=== PATIENT | male | born 1980 | race African-American/Black ===

== ENCOUNTER 2020-01-26 09:21 | Emergency (ER) | payer OTHER, SELFPAY ==
[2020-01-26 09:29] VITALS: BP 118/76; PULSE 72; RESP 19; TEMP 36.5; O2SAT 99
--- NOTE | 2020-01-26 09:34 | ED.URI ---
HPI - URI/Sore Throat General Chief Complaint: Upper Respiratory Infection Stated Complaint: sore throat Time Seen by Provider: 01/26/20 09:34 Source: patient and RN notes reviewed History of Present Illness HPI Narrative: Patient is a 39-year-old male that presents the urgent care with complaints of a sore throat that started last night. Patient had been taking sinus cold medicine as well as Tylenol. Denies any known fever, nausea, vomiting. States that they are boarding a plane at 2 PM and wants to make sure they do not have strep. No other acute complaints. No acute distress noted. Patient read the plan of care. Related Data Allergies Allergy/AdvReac Type Severity Reaction Status Date / Time No Known Allergies Allergy Unverified 04/06/17 20:01 Review of Systems Review of Systems: Narrative: CONSTITUTIONAL: Denies fever, chills, or sweats. EYES: Denies visual changes, redness, or discharge. ENT: Reports of sore throat CARDIOVASCULAR: Denies chest pain, palpitations, or edema. RESPIRATORY: Denies cough or dyspnea. GASTROINTESTINAL: Denies abdominal pain, nausea, vomiting, or diarrhea. GENITOURINARY: Denies dysuria or hematuria. SKIN: Denies rash or itching. MUSCULOSKELETAL: Denies back pain, joint pain, or myalgia. NEUROLOGIC: Denies headache, numbness, or weakness. All other systems reviewed are negative, except as documented in HPI. [facility] Past Medical History Medical History (Updated 01/26/20 @ 09:46 by TYRELL Saravia) Influenza B Social History Social History Smoking status: Never smoker Alcohol intake: never Comments At the time of my signature, I reviewed and agree with the nursing past medical, surgical, social, and family history. There is no relevant family history pertinent to the patient complaint. Exam Narrative: Exam Narrative: GENERAL: This is a well-nourished, well-developed patient, in no apparent distress. HEAD: normocephalic, atraumatic. EYES: PERRL. Sclera clear/white. Vision is grossly intact. EARS: External ears normal, auditory canals clear and without drainage, TMs normal without perforation. Hearing grossly intact. NOSE: External nose normal with no obvious nasal discharge, nares without redness, no rhinorrhea. THROAT: Mucous membranes moist, mild erythema noted posterior oropharynx without exudate or ulceration NECK: Neck supple, non-tender without lymphadenopathy, masses or thyromegaly. CARDIOVASCULAR: Regular rate and rhythm without murmurs, gallops, or rubs. RESPIRATORY: Clear to auscultation. Breath sounds equal bilaterally. No wheezes, rales, or rhonchi. SKIN: warm, intact with no suspicious lesions or rash, good texture and turgor. NEURO: awake, alert, and oriented to person, place and time. There were no obvious focal neurologic abnormalities. EXTREMITIES: No clubbing, cyanosis, or edema. Course Vital Signs Vital signs: Vital Signs Temperature 97.7 F 01/26/20 09:29 Pulse Rate 72 01/26/20 09:29 Respiratory Rate 19 01/26/20 09:29 Blood Pressure 118/76 01/26/20 09:29 Pulse Oximetry 99 01/26/20 09:29 Temperature 97.7 F 01/26/20 09:29 Pulse Rate 72 01/26/20 09:29 Respiratory Rate 19 01/26/20 09:29 Blood Pressure 118/76 01/26/20 09:29 Pulse Oximetry 99 01/26/20 09:29 Reviewed MDM - URI/Sore Throat MDM Narrative Medical decision making narrative: Reviewed lab results with the patient. Patient is aware that strep swab was positive. Advised him to complete antibiotic regimen as prescribed. Make sure to eat and drink with medication. Use Tylenol/ibuprofen as needed for fever pain. Use humidifier at night. Follow-up with PCP within 2 to 5 days or for worsening symptoms or failure to improve. Differential Diagnosis Differential diagnosis: Likely upper respiratory infection, otitis media, sinusitis, viral infection, bronchitis, influenza and pharyngitis Lab Data Attestation: I
== END 2020-01-26 09:53 | disposition home or self-care (01) ==
PROVIDERS: Emergency Provider Nurse Practitioner Family; PCP Internal Medicine
DX: J02.0 Streptococcal pharyngitis (principal)
CPT/HCPCS: 87880; 99213; G0463

== ENCOUNTER → 2021-11-22 03:34 | Outpatient (CLI) | payer OTHER, SELFPAY ==
[2021-11-23 22:39] LABS: SARS-CoV-2 RNA PCR Negative
== END ==
PROVIDERS: PCP Internal Medicine; Visit Provider Internal Medicine
DX: R09.89 Other specified symptoms and signs involving the circulatory and respiratory systems (principal); Z20.822 Contact with and (suspected) exposure to COVID-19
CPT/HCPCS: C9803; U0003; U0005

== ENCOUNTER 2022-06-06 00:57 | Emergency (ER) | payer OTHER, SELFPAY ==
[2022-06-06 01:09] VITALS: BP 132/81; PULSE 80; RESP 18; TEMP 36.6; O2SAT 96
--- NOTE | 2022-06-06 02:04 | ED.GENADULT ---
HPI - General Adult General Chief complaint: Back Pain/Injury Stated complaint: mid back pain Time Seen by Provider: 06/06/22 01:33 History of Present Illness HPI narrative: 41-year-old male presenting to the emergency department for evaluation of 2 episodes of back pain. Patient states yesterday morning when he woke up he had onset of back pain resulting from him rolling over to reach his alarm. Patient states the back pain started across bilateral flanks and also across his upper abdomen. Patient states he took a warm shower and that the symptoms lasted approximately 45 minutes. Patient was symptom-free for the rest of the day and through this morning. Patient states while going to bed he once again had recurrence of the flank pain and of the anterior abdominal pain. Patient states these symptoms lasted for about 45 minutes again. He did have some pain rating down the sides of his lower abdomen which lasted about 20 minutes. Patient became concerned had some associated anxiety and subsequent emesis. Patient called EMS and by the time EMS arrived the pain was improving. Upon arrival emergency department patient states he is currently pain-free denies any complaints at this time. Related Data Home Medications Medication Instructions Recorded Confirmed No Home Medications 08/26/21 Allergies Allergy/AdvReac Type Severity Reaction Status Date / Time No Known Allergies Allergy Verified 08/26/21 15:42 Review of Systems Review of Systems: CONSTITUTIONAL: Denies fever, chills, or sweats. EYES: Denies visual changes, redness, or discharge. ENT: Denies rhinorrhea, congestion, sore throat, or otalgia. CARDIOVASCULAR: Denies chest pain, palpitations, or edema. RESPIRATORY: Denies cough or dyspnea. GASTROINTESTINAL: See HPI GENITOURINARY: Denies dysuria or hematuria. SKIN: Denies rash or itching. MUSCULOSKELETAL: See HPI NEUROLOGIC: Denies headache, numbness, or weakness. PMFSH Past Medical History Medical History Influenza B Family History Family History Father Hypertension Mother Family history of lung cancer Patient's mother is Social History Social History Smoking status: Never smoker Alcohol intake: never Exam Narrative: APPEARANCE: Well appearing, no pain, no distress, well-nourished. HEAD: normocephalic, atraumatic. EYES: PERRLA/EOMI, conjunctivae clear. NOSE: Normal no drainage NECK: Supple. No adenopathy, no masses. RESPIRATORY: Airway patent, respirations nonlabored. Clear to auscultation bilaterally, no rales, rhonchi, wheezing. CARDIOVASCULAR: Regular rate and rhythm without murmurs rubs or gallops. ABDOMINAL: Soft, nontender, nondistended, normal bowel sounds MUSCULOSKELETAL: Moves all extremities. Strength/ROM intact, No edema, No calf tenderness. NEURO: Alert. Cranial nerves II through XII intact. Grossly intact SKIN: Warm, dry. Normal Color Course Course Emergency Course: Patient was pain-free and declined needing any medications for nausea or for pain control. Patient has continued to be symptom-free in the emergency department. Patient has no leukocytosis and is afebrile. Patient's electrolytes are within normal limits. Patient has no elevated transaminases or T bili. Patient's UA has no evidence of hematuria. On reexamination patient is still nontender to palpation and is symptom-free. Patient was advised to have close follow-up with his primary care physician. All questions and concerns were addressed. Vital Signs Vital signs: Vital Signs Temperature 98 F 06/06/22 01:09 Pulse Rate 80 06/06/22 01:09 Respiratory Rate 18 06/06/22 01:09 Blood Pressure 132/81 06/06/22 01:09 Pulse Oximetry 96 06/06/22 01:09 Oxygen Delivery Room Air 06/06/22 01:09 Temperature 98 F 06/06/22
[2022-06-06 02:11] LABS: Basophils Percent Auto 0.8 % (0.2-1.2); Eosinophils Percent Auto 0.8 % (0-4.4); Hematocrit 43.8 % (42.0-52.0); Hemoglobin 14.5 g/dL (14.0-18.0); Immature Granulocyte Absolute 0.01 K/mm3 (0.00-0.031); Immature Granulocyte Percent A 0.2 % (0-0.5); Lymphocytes Absolute Auto 1.55 K/mm3 (0.9-3.2); Lymphocytes Percent Auto 29.2 % (18.3-44.2); Mean Corpuscular HGB Conc 33.1 g/dl (32-36); Mean Corpuscular Hemoglobin 30.6 pg (26-34); Mean Corpuscular Volume 92.4 fl (80-100); Mean Platelet Volume 10.7 fl (7.4-10.4); Monocytes Absolute Auto 0.4 K/mm3 (0.1-0.6); Monocytes Percent Auto 6.8 % (2.6-8.5); Neutrophils Absolute Auto 3.3 K/mm3 (1.3-6.7); Neutrophils Percent Auto 62.2 % (45.5-73.1); Platelet Count Result 178 k/mm3 (150-375); Red Blood Count 4.74 M/mm3 (4.6-6.20); Red Cell Distribution Width 14.6 % (11.5-14.5); White Blood Count 5.3 K/mm3 (4.5-10.0)
[2022-06-06 02:12] LABS: Appearance Urine Clear (Clear); Bilirubin Urine Negative (Negative); Blood Urine Negative (Negative); Color Urine Yellow (Yellow); Glucose Urine UA Negative (Negative); Ketones Urine Negative (Negative); Leukocyte Esterase Ur Negative LEU/UL (Negative); Nitrate Urine Negative (Negative); Protein Urine Negative (Negative); Specific Grav Ur >= 1.030 (1.001-1.035); Urobilinogen Urine 0.2 mg/dL (<2.0); pH Urine 5.5 (5.0-9.0)
[2022-06-06 02:18] LABS: Mucus Urine Rare /lpf; RBC Urine 0-2 /hpf (0-2); WBC Urine 0-3 /hpf
[2022-06-06 02:21] LABS: Alanine Aminotransferase 25 U/L (6-50); Albumin Level 4.6 g/dL (3.5-5.1); Alkaline Phosphatase 57 U/L (38-126); Anion Gap 7 mmol/L (8-16); Aspartate Amino Transferase 25 U/L (17-59); Bilirubin,Total 0.5 mg/dL (0.2-1.3); Blood Urea Nitrogen 13 mg/dL (9-20); Carbon Dioxide 24 mmol/L (22-30); Chloride 110 mmol/L (98-107); Estimated CRCL calculation 115 ml/min; Estimated Glomerular Filt Rate > 60; Glucose 107 mg/dL (65-110); Potassium 3.9 mmol/L (3.4-5.0); Sodium 141 mmol/L (137-145)
[2022-06-06 02:23] LABS: Add Urine Microscopic? NO
[2022-06-06 03:10] VITALS: BP 128/75; PULSE 75; RESP 18; O2SAT 99
== END 2022-06-06 03:11 | disposition home or self-care (01) ==
PROVIDERS: Emergency Provider Emergency Medicine; PCP Internal Medicine
DX: R10.10 Upper abdominal pain, unspecified (principal)
CPT/HCPCS: 36415; 80053; 81003; 85025; 99283

== ENCOUNTER → 2022-09-26 15:52 | Outpatient (CLI) | payer OTHER, SELFPAY ==
--- NOTE | ~2022-09-26 | XR_ITS ---
XR abdomen/kub 1V DATE: 09/26/2022 16:04 INDICATION: Abdominal pain, back pain TECHNIQUE: 2 AP views COMPARISON: None FINDINGS: A coil overlies the mid pelvic area. The psoas shadows are intact. No visceromegaly or significant abnormal calcification is noted. No micah dence of bowel obstruction. No bone destruction. IMPRESSION: Coil overlies mid pelvic area; otherwise unremarkable examination Reviewed, dictated and finalized at [facility]. Reviewed, dictated and finalized at [facility]. 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
== END ==
PROVIDERS: PCP Family Medicine; Visit Provider Family Medicine
DX: R10.9 Unspecified abdominal pain (principal)
CPT/HCPCS: 74018

== ENCOUNTER 2022-10-17 14:38 | Outpatient (CLI) | payer OTHER, SELFPAY ==
--- NOTE | ~2022-10-17 | CT_ITS ---
EXAMINATION: CT abdomen pelvis w con DATE: 10/17/2022 15:02 INDICATION: Unspecified abdominal pain TECHNIQUE: Computed tomography (CT) of the abdomen and pelvis was performed with 100 cc Omnipaque 350 intravenous contrast. The dose-length product was 1146.97 mGy-cm. Automated exposure control and ite rative reconstruction technique were employed. COMPARISON: None. FINDINGS: Lung bases are unremarkable. Heart size normal. No significant pleural or pericardial effus ion. Nonobstructive bowel gas pattern. Normal appendix. No significant vascular abnormality. Small fa t-containing umbilical hernia. No evidence for diverticulitis. The liver, spleen, pancreas, adrenal glands and kidneys are unremarkable. Gallbladder is contracted. No free air or free fluid. No acute osseous abnormality. Mild osteoarthritis of the hips. IMPRESSION: 1. No acute abdominal abnormality. Reviewed, dictated and finalized at [facility]. [facility] [employer]
== END 2022-10-17 14:39 ==
PROVIDERS: PCP Family Medicine; Visit Provider Family Medicine
DX: R10.9 Unspecified abdominal pain (principal)
CPT/HCPCS: 74177; Q9967